=== PATIENT | male | born 1970 | race Two or more races ===

== ENCOUNTER 2018-10-09 18:47 | Outpatient (AMB) | payer OTHER, SELFPAY ==
[2018-10-09 20:49] VITALS: BP 145/93; PULSE 60; RESP 18; TEMP 37; O2SAT 99; BMI 26.3
--- NOTE | 2018-10-09 21:12 | URCARE_ITS ---
Intake Ht./Wt. Decline/Exclusions Patient Declined Height and Weight this visit: No PT Meets exclusion criteria: No Vital Signs 10/09/18 20:49 Height Method Measured Weight Measurement Method Standing Scale BMI 26.3 Temp 98.6 F Temp Source Temporal Artery Scan Pulse 60 Pulse Source Monitor Respiration 18 BP 145/93 H Blood Pressure Source Automatic Cuff Blood Pressure Location Right Upper Arm Position Sitting Pulse Oximetry (%) 99 Oxygen Delivery Method Room Air Intake Zika Travel: No Been in contact w/anyone who has been Dx w/Zika Virus: No Been in contact w/anyone sick during travel outside country: No Patient >or equal to 18 years BMI outside of range 18.5-24.9: Yes Visit Reasons: UC Ear complaints Primary Care Provider: Yudi Kang Is patient in pain?: Yes Pain Location:: left ear Lyle-Kumar/Numerical: 7 Pain Scale Used: Numeric (1 - 10) Triage Triage Allergy / Med Rec Allergies Penicillins Allergy (Intermediate, Verified 10/09/18 21:11) rash Band Placement: Patient Identification MARK: [id number] Arrival Mode of Arrival: Private Vehicle Method of Arrival: Ambulatory Accompanied By: Self and Significant Other PCP or OBGYN visit in last 3 months: Yes Language Preferred Language: Macedonian Carpet Or Rug Layer Helper Required: No Social History Alcohol / Drugs Hx Alcohol Use: No Hx Substance Use: No Safety Do You Feel Safe at Home: Yes Authorities Contacted: N/A Padgett Fall Scale Special Populations Patient Comatose, Paralyzed or Immobile: No Patient Under the Age of 44 Years Old: No Assessment History of falling; immediate or within 3 months: No Secondary diagnosis: No Ambulatory aid: None IV Infusion: No Gait/Transferring: Normal/bedrest/immobile Mental Status: Oriented to own ability Score Score: 0 Risk Level/Action Risk Level: Low Risk Action: Good Basic Nursing Care Fall Star Level 1 Fall Star Level 1: Yes Patient Education Topic Education Topics: Discharge Instructions and Plan of Care Teaching Recipient: Patient Readiness, Motivation to Learn: Active Methods: Verbal instruction and Hand Out Educ Materials Suggested by INFO Button/Rx Monograph Given: No Response: Verbalize Understanding Carpet Or Rug Layer Helper Required: No Population Health PMH Hx Congestive Heart Failure: No Hx Diabetes Mellitus Type 1: No Hx Diabetes Mellitus Type 2: No Hx Renal Disease: No Hx Chronic Obstructive Pulmonary Disease (COPD): No Past Medical History Reviewed and agree with Nursing documentation.: Yes Past Medical History History Provided By: Patient Cardiac Medical History Hx Congestive Heart Failure: No Endocrine Medical History Hx Diabetes Mellitus Type 1: No Hx Diabetes Mellitus Type 2: No Genitourinary Medical History Hx Renal Disease: No Respiratory Medical History Hx COPD: No HPI Ear Problem Details: This is a 48-year-old male who presents the urgent care complaining of a left earache for the last 2 days. He denies any fever chills nausea vomiting or diarrhea. No cough or shortness of breath. No sick contacts. No other complaints at this time. Review of Systems (UC) Review of Systems All systems reviewed & no additional complaints except as documented Const Constitutional: Denies fever(s) ENT Ears. Nose, Mouth, and Throat: Reports ear pain Resp Respiratory: Denies cough GI Gastrointestinal: Denies diarrhea, Denies nausea and Denies vomiting Exam (UC) Limitations: no limitations General Appearance: alert, in no apparent distress, comfortable, cooperative, healthy appearing, well developed and well groomed Head exam: atraumatic, normocephalic and normal inspection Eye exam: Reports normal appearance and Reports EOMI ENT exam: Present normal external ear exam, normal oropharynx, mucous membranes moist and TM abnormal (Right TM clear. + Erythema to the left TM without perforation.) Neck Exam: Present normal inspection and supple Chest/Breast Exam: Present normal inspection and symmetric chest wall rise SPO2%: 99% SPO2 type: Room Air SPO2% Normal/Abnormal: Normal Respiratory exam: Present normal lung sounds bilaterally, normal respiratory effort, able to speak in complete sentences and clear to ascultation bilaterally Cardiovascular exam: Present regular rate and regular rhythm Extremities exam: normal inspection Back exam: Present normal inspection Neurological Exam: Present alert, awake and oriented X3 Psychiatric exam: Present normal affect and normal mood Skin exam: Present warm, dry, intact and normal color Office Procedures UC Level of Care Nursing/Assessment/Reassessment Patient Status: Established Patient Nursing Assessment/Reassessment: Triage Asessment, Initial Vital Signs and RN General Assessments Coordination of Care: DC Instructions Simple Established Patient Charge Established Patient Point Assignment: 40 Procedures: Pulse Ox reading: Yes Assessment and Plan Assessment & Plan (1) Acute otitis media, left: Plan Details Other Medications: New: acetaminophen ER swallow whole; do not crush, chew, break, dissolve, cut, or open 650 mg PO Q8H PRN 30 tabs 0RF fever or pain ibuprofen prn pain / fever 600 mg PO Q8H PRN 30 tabs 0RF fever or pain azithromycin (Zithromax) take 2 tablets (500 mg) today (day 1), then 1 tablet (250 mg) for 4 days (days 2-5) PO 6 tabs 0RF Additional Comments: Follow up with your doctor in 3-5 days for recheck and reevaluation. Take any / all medication(s) as directed. If worse, not improving, or any concerns go immediately to the EMERGENCY ROOM. DISCHARGE NOTE: I emphasized the need for follow-up with their primary care provider. Failure to follow-up could result in a poor outcome or failure of treatment altogether. If the patient is unable to follow-up with their primary care provider, they are to go to the Emergency Department if their symptoms persist or worsen. I have reviewed the discharge treatment plan and follow-up instructions with the patient and/or patient representatives, addressed any concerns, and answered any and all questions. They have verbalized understanding of the discharge treatment plan. Primary Care Provider: Yudi Kang Follow Up: 3 Days Instructions: ED Middle Ear Infec Abx Tx Additional Information PA/SCALLOP SHUCKER Supervising Physician: Jerson Lafleur [facility] Evaluation Discharge Information Seen, Treated and Released by Provider: No Left Prior to Receiving Discharge Instructions: No Transfer to Outside Facility: No Vital Signs Vitals Signs N/A: Yes Pain Pain Medication / Other Intervention Provided: No Medication Medication Given this Visit: No Discharge Information Condition on Discharge: Stable Mode of Discharge: Ambulatory Discharge Transportation: Private Vehicle Instructions Carpet Or Rug Layer Helper Required: No Discharge Instructions Given To: Patient and Spouse Was Follow up Care Ordered: Yes Verbalizes Understanding of Discharge Instructions: Yes [facility] information card provided?: Yes Patient plan follow up w/PCP for [facility]: No Ear HPI Related Data Allergies Allergy/AdvReac Type Severity Reaction Status Date / Time Penicillins Allergy Intermediate rash Verified 10/09/18 21:11
== END 2018-10-09 21:40 | disposition home or self-care (01) ==
PROVIDERS: PCP Internal Medicine; Referring Provider Internal Medicine; Visit Provider Physician Assistant
DX: I10 Essential (primary) hypertension (principal)

== ENCOUNTER 2024-10-30 12:58 | Emergency (ER) | payer OTHER, SELFPAY ==
[2024-10-30 13:27] VITALS: BP 138/82; PULSE 67; RESP 18; TEMP 36.9; O2SAT 98
--- NOTE | 2024-10-30 13:42 | EDNOTE_ITS ---
<Statement entered by Tiki Norris MD - 10/30/24 17:34> As co-signing physician, I was present and available for consult prn. I concur with the plan and care as documented by the midlevel provider. ED General RME/HPI General Chief complaint: Back Pain/Injury Stated complaint: BACK PAIN/INJURY Time Seen by Provider: 10/30/24 13:17 Arrival date/time: 10/30/24 12:58 CC: Left low back pain HPI onset 3 days ago after bending over to lift up a 20 pound weight found a pulling sensation in the left low back which immediately experienced pain. Getting better mildly over 2 days and then became worse again patient denies any bowel or bladder symptoms saddle anesthesia numbness tingling or weakness in the lower extremity. No other complaints at this time patient is using Lidoderm patches and IcyHot patches with minimal relief. Current pain is a 6 to an 8 on a 10 scale radiating down the back of the left leg. Denies any leg weakness or numbness. Related Data Home Medications ?Medication ?Instructions ?Recorded ?Confirmed fexofenadine 60 mg tablet (Marylu 60 mg PO QDAY 10/2310/23/18 Allergy) Previous Rx's ?Medication ?Instructions ?Recorded cyclobenzaprine 10 mg tablet 10 mg PO TID #20 tabs lidocaine 5 % topical patch 1 patch topical Q24H #15 e a 10/30/24 (Lidoderm) meloxicam 7.5 mg tablet 7.5 mg PO QDAY #10 tabs 10/03 04/28 Allergies Allergy/AdvReac Type Severity Reaction Status Date / Time Penicillins Allergy Intermediate Swelling Verified 04/17/23 22:41 of Lip/Tongue/Throat Review of Systems Review of Systems Narrative Review of Systems: GEN: No fever, no chills, no weight loss EYES: No discharge, no visual changes, no pain HEENT: No ear pain, no congestion, no sore throat PULM: No shortness of breath, no cough, no congestion CV: No chest pain, no dyspnea on exertion, no palpitations GI: No nausea, no vomiting, no diarrhea, no pain, no constipation : No frequency, no urgency, no dysuria MUSC/SKEL: No joint pain, + back pain SKIN: No rash PSYCH: No hallucinations, no depression HEME/LYMPH: No easy bleeding or bruising tendencies NEURO: No weakness, no headache ED Exam Narrative Physical exam: [General: Mild discomfort but not in any acute distress Head normocephalic HEENT: Within acceptable limits Neck is supple nontender Chest equal chest rise nontender to palpation Respiratory: Clear to auscultation no wheezes crackles or rubs CV: Rate rhythm is regular no murmurs rubs or clicks Abdomen is distended secondary to body habitus soft nontender no masses positive bowel sounds all 4 quadrants Back: Left lumbar paraspinal tenderness with palpation site-specific no spinous process tenderness no right paraspinal tenderness with palpation. No thoracic or cervical pain with palpation. Skin: Intact no petechiae rash induration ulceration or crepitus Extremities: Moving all extremity against resistance cap refill less than 2 seconds neurosensory intact Neuro: Awake alert oriented x3 Glascow coma 15 no focal deficits] Course Quality Measures none Vital Signs Vital signs: Vital Signs Temperature 98.4 F 10/30/24 13:27 Pulse Rate 67 10/30/24 13:27 Respiratory Rate 18 10/30/24 13:27 Blood Pressure 138/82 H 10/30/24 13:27 Pulse Oximetry (%) 98 10/30/24 13:27 Oxygen Delivery Method Room Air 10/30/24 13:27 [facility] Patient data External records reviewed:: [facility] previous records Clinical information provided by:: patient Social determinants that could affect healthcare access:: none Patient has the following chronic illnesses:: None How is presenting disease/condition affected by chronic disease/condition?: uneffected by Evaluation data The following diagnostics were reviewed and interpreted by me:: other (specify) (None) Lab and/or radiology exams considered but not ordered:: None Interpretation Summary: Low back strain Medications Medications considered but not ordered:: None Medication administrations:: None Consultations Consultation(s) initiated? (list below): No Diagnosis Differential Diagnosis ED Complaint MDM: Strain sprain and fracture of the low back Most likely diagnosis given after review of the tests above:: Low back strain Admission Indicated Admission indicated?: not indicated Explain why admission is indicated or not indicated:: Stable for outpatient follow-up Admission Request Was there a request for admission?: No Disposition Plan Disposition Plan: Discharge Discharge Attestation Discharge Attestation: The patient and all family members were given an opportunity to ask questions and understood the discharge instructions. Discharge instructions specifically effects, indications for sooner follow up or return to the emergency department, and the expected course of current diagnosis. Patient condition: Stable Medical Decision Making Differential Diagnosis Differential Diagnosis: Strain sprain and fracture of the low back Discharge Plan Plan Patient Disposition: HOME (Self Care) Patient condition on transfer: Stable Prescriptions/Referrals Prescriptions/Med Rec: New meloxicam 7.5 mg tablet 7.5 mg PO QDAY Qty: 10 0RF cyclobenzaprine 10 mg tablet 10 mg PO TID Qty: 20 0RF lidocaine [Lidoderm] 5 % adhesive patch,medicated 1 patch topical Q24H Qty: 15 0RF Rx Instructions: leave on most painful area for up to 12 hrs No Action fexofenadine [Marylu Allergy] 60 mg Tablet 60 mg PO QDAY Problem List Clinical Impression: Low back strain Patient/Caregiver Discharge Instructions Education Materials: ED Back Sprain/Strain Additional Instructions: Use the medication as prescribed with is worsening of symptoms like worsening pain that radiates down the back of bowel or bladder incontinence return the emergency room immediately for further evaluation. Print Language: Mongolian Stand Alone Forms: Liz Award Info., Patient Portal Info Letter, Work/School Release PA/PUBLIC RELATIONS ACCOUNT SUPERVISOR Supervising Physician PA/PUBLIC RELATIONS ACCOUNT SUPERVISOR Supervising Physician: Robert Ragland ENP
== END 2024-10-30 14:37 | disposition home or self-care (01) ==
PROVIDERS: Emergency Provider Emergency Medicine; PCP Family Medicine
DX: S39.012A Strain of muscle, fascia and tendon of lower back, initial encounter (principal); X58.XXXA Exposure to other specified factors, initial encounter
CPT/HCPCS: 99281

== ENCOUNTER → 2025-02-11 | Outpatient (CLI) | payer OTHER, SELFPAY ==
[2025-02-11 08:16] LABS: Collection Type, Urine Clean Catch; Squamous Epithelial Cell,Urine 0 /hpf (0-5); WBC,Urine 0 /hpf (0-5)
[2025-02-11 08:48] LABS: Basophils # (Auto) 0.0 Thou/mm3 (0.0-0.2); Basophils % (Auto) 0 % (0-2.5); Eosinophils # (Auto) 0.1 Thou/mm3 (0.0-0.5); Eosinophils % (Auto) 3 % (0-10); Hematocrit 43.0 % (41.0-53.0); Hemoglobin 14.8 g/dL (13.5-16.0); Immature Granulocytes Auto 0.01 Thou/mm3 (0.00-0.00); Lymphocytes # (Auto) 1.5 Thou/mm3 (1.0-4.8); Lymphocytes % (Auto) 30 % (10-50); Mean Corpuscular HGB Conc 34.4 g/dl (31.0-37.0); Mean Corpuscular Hemoglobin 30.9 pg (25.0-35.0); Mean Corpuscular Volume 90 fL (80-100); Monocytes # (Auto) 0.4 Thou/mm3 (0.0-0.8); Monocytes % (Auto) 8 % (0-12); Neutrophils # (Auto) 3.0 Thou/mm3 (1.8-7.7); Neutrophils % (Auto) 59 % (37-80); Nucleated Red Blood Cell # 0.00 Thou/mm3 (0.00-0.00); Nucleated Red Blood Cell % 0 /100 WBC (0); Platelet Count 256 Thou/mm3 (140-440); RDW Standard Deviation 41.3 fL (35.1-43.9); Red Blood Count 4.79 Miln/mm3 (4.50-5.90); White Blood Count 5.1 Thou/mm3 (3.8-10.6)
[2025-02-11 09:06] LABS: Alanine Aminotransferase 19 U/L (10-49); Albumin, Serum 4.5 gm/dL (3.5-5.0); Albumin/Globulin Ratio 1.8 (1.2-2.2); Alkaline Phosphatase 76 U/L (46-116); Anion Gap 9 (7-16); Aspartate Amino Transferase 21 U/L (0-34); BUN/Creatinine Ratio 17 Ratio (12-20); Bilirubin,Total 0.7 mg/dL (0.3-1.2); Blood Urea Nitrogen 17 mg/dL (9-23); Calcium 9.3 mg/dL (8.3-10.6); Calcium (Corrected) 9.3 mg/dL (8.5-10.1); Carbon Dioxide 26.9 mMol/L (20.0-31.0); Cardiac Risk Estimate 3.0 RATIO (4.0-6.7); Chloride 107 mMol/L (98-107); Cholesterol 211 mg/dL (132-200); Creatinine (Component) 1.0 mg/dL (0.6-1.3); Globulin 2.5 gm/dL (2.3-3.5); Glucose 101 mg/dL (74-106); HDL Cholesterol 71 mg/dL (40-60); LDL Cholesterol,Calculated 121 mg/dL (0-130); Osmolality,Calculated 286 (275-295); Potassium 4.5 mMol/L (3.4-5.1); Sodium 143 mMol/L (136-145); Thyroid Stimulating Hormone 0.87 uIU/mL (0.55-4.78); Total Protein 7.0 gm/dL (5.7-8.2); Triglycerides 97 mg/dL (30-150); eGFR > 60 See Note
[2025-02-11 09:11] LABS: Prostate Specific Antigen 1.07 ng/mL (0-4.00)
[2025-02-11 09:15] LABS: Vitamin D 25 Hydroxy Total 41.7 ng/mL (7.3-40.2)
[2025-02-11 09:49] LABS: Bilirubin,Urine Negative (Negative); Blood,Urine Negative (Negative); Clarity,Urine Clear (Clear/Hazy); Color,Urine Yellow (Lt Yel-Yel); Culture Indicated,Urine Not Indicated; Glucose, Urine Negative (Negative); Ketones,Urine Negative (Negative); Leukocyte Esterase,Urine Negative (Negative); Nitrite,Urine Negative (Negative); PH,Urine 6.0 (5.0-7.0); Protein,Urine Negative (Neg - Trace); RBC,Urine 1 /hpf (0-3); Specific Gravity,Urine 1.028 (1.001-1.035); Urobilinogen,Urine Negative mg/dL (0.0-1.0)
[2025-02-16 06:34] LABS: Testosterone,Total* 690 ng/dL (250-1100)
== END | disposition home or self-care (01) ==
PROVIDERS: PCP Family Medicine; Referring Provider Family Medicine; Visit Provider Family Medicine
DX: Z00.00 Encounter for general adult medical examination without abnormal findings (principal); R53.83 Other fatigue; R30.1 Vesical tenesmus; Z13.0 Encounter for screening for diseases of the blood and blood-forming organs and certain disorders involving the immune mechanism; Z13.1 Encounter for screening for diabetes mellitus; Z13.21 Encounter for screening for nutritional disorder; Z13.220 Encounter for screening for lipoid disorders; Z13.29 Encounter for screening for other suspected endocrine disorder; Z83.3 Family history of diabetes mellitus
CPT/HCPCS: 36415; 80053; 80061; 81001; 82306; 84153; 84403; 84443; 85025

== ENCOUNTER → 2025-02-17 | Outpatient (CLI) | payer OTHER, SELFPAY ==
[2025-02-22 06:48] LABS: Fecal Globin Result NOT DETECTED (NOT DETECTED)
== END | disposition home or self-care (01) ==
LOC: SLDO 13:08
PROVIDERS: PCP Family Medicine; Referring Provider Family Medicine; Visit Provider Family Medicine
DX: Z12.11 Encounter for screening for malignant neoplasm of colon (principal)
CPT/HCPCS: 82274; G0328